=== PATIENT | male | born 1970 | race American Indian/Alaskan Native ===

== ENCOUNTER 2021-09-11 10:46 | Emergency (ER) | payer SELFPAY ==
--- NOTE | 2021-09-11 11:11 | Emergency Department Report ---
ED ENT HPI - General Chief complaint: Sore Throat Stated complaint: HARD TIME SWALLOWING Time Seen by Provider: 09/11/21 11:03 Source: patient Mode of arrival: Ambulatory Limitations: No Limitations - History of Present Illness Initial comments: This is a 51-year-old male nontoxic, well nourished in appearance, no acute signs of distress presents to the ED with c/o of sore throat x several days. Patient describes sore throat as swallowing razer blades. Patient denies any fever, chills, headache, stiff neck, nausea, vomiting, chest pain, shortness of breath, numbness or tingling. Patient denies any drooling or hoarseness. Patient denies any allergies or significant past medical history. MD complaint: sore throat -: days(s) Location: throat Severity: mild Severity scale (0 -10): 8 Quality: aching Consistency: constant Improves with: none Worsens with: swallowing Associated Symptoms: pain with swallowing, sore throat. denies: fever, cough, gum swelling, toothache, tinnitus, hearing loss, discharge from ear, rhinorrhea - Related Data Previous Rx's Medication Instructions Recorded Last Taken Type Amoxicillin [Amoxicillin TAB] 875 mg PO BID #20 tablet 09/11/21 Unknown Rx Naproxen 500 mg PO Q12H PRN #12 tablet 09/11/21 Unknown Rx Nystas/Diphen/Xyl Visc/Mylanta 15 ml MM Q6H PRN 5 Days #1 bottle 09/11/21 Unknown Rx [Magic Mouthwash] Allergies Allergy/AdvReac Type Severity Reaction Status Date / Time No Known Allergies Allergy Verified 09/11/21 10:57 ED Dental HPI - General Chief complaint: Sore Throat Stated complaint: HARD TIME SWALLOWING Time Seen by Provider: 09/11/21 11:03 Source: patient Mode of arrival: Ambulatory Limitations: No Limitations - Related Data Previous Rx's Medication Instructions Recorded Last Taken Type Amoxicillin [Amoxicillin TAB] 875 mg PO BID #20 tablet 09/11/21 Unknown Rx Naproxen 500 mg PO Q12H PRN #12 tablet 09/11/21 Unknown Rx Nystas/Diphen/Xyl Visc/Mylanta 15 ml MM Q6H PRN 5 Days #1 bottle 09/11/21 Unknow n Rx [Magic Mouthwash] Allergies Allergy/AdvReac Type Severity Reaction Status Date / Time No Known Allergies Allergy Verified 09/11/21 10:57 ED Review of Systems ROS: Stated complaint: HARD TIME SWALLOWING Other details as noted in HPI Comment: All other systems reviewed and negative Constitutional: denies: chills, fever Eyes: denies: eye pain, eye discharge, vision change ENT: throat pain. denies: ear pain, dental pain, hearing loss, epistaxis, congestion Respiratory: denies: cough, shortness of breath, wheezing Cardiovascular: denies: chest pain, palpitations Endocrine: no symptoms reported Gastrointestinal: denies: abdominal pain, nausea, diarrhea Genitourinary: denies: urgency, dysuria Musculoskeletal: denies: back pain, joint swelling, arthralgia Skin: denies: rash, lesions Neurological: denies: headache, weakness, paresthesias Psychiatric: denies: anxiety, depression Hematological/Lymphatic: denies: easy bleeding, easy bruising ED Past Medical Hx - Past Medical History Previous Medical History?: No - Surgical History Past Surgical History?: Yes Additional Surgical History: 1992 hernia repair - Medications Home Medications: Home Medications Medication Instructions Recorded Confirmed Last Taken Type Amoxicillin [Amoxicillin TAB] 875 mg PO BID #20 tablet 09/11/21 Unknown Rx Naproxen 500 mg PO Q12H PRN #12 tablet 09/11/21 Unknown Rx Nystas/Diphen/Xyl Visc/Mylanta 15 ml MM Q6H PRN 5 Days #1 bottle 09/11/21 Unknown Rx [Magic Mouthwash] ED Physical Exam - General Limitations: No Limitations General appearance: alert, in no apparent distress - Head Head exam: Present: atraumatic, normocephalic - Eye Eye exam: Present: normal appearance - Expanded ENT Exam Expanded Ear exam: Present: normal external inspection Mouth exam: Present: normal external inspection, tongue normal. Absent: drooling, trismus, muffled voice Teeth exam: Present: normal inspection Throat exam: Positive: tonsillar erythema, tonsillomegaly (2+ bilateral), other (Uvula midline. No tonsillar abscess). Negative: tonsillar exudate, R peritonsillar mass, L peritonsillar mass - Neck Neck exam: Present: normal inspection, full ROM, lymphadenopathy (Tonsillar bilateral). Absent: tenderness, meningismus - Respiratory Respiratory exam: Absent: respiratory distress - Cardiovascular Cardiovascular Exam: Present: regular rate - Extremities Exam Extremities exam: Present: full ROM - Back Exam Back exam: Present: full ROM - Neurological Exam Neurological exam: Present: alert, oriented X3, normal gait - Psychiatric Psychiatric exam: Present: normal affect, normal mood - Skin Skin exam: Present: warm, dry, intact, normal color. Absent: rash ED Course Vital Signs 09/11/21 10:57 Temperature 99.4 F Pulse Rate 91 H Respiratory 18 Rate Blood Pressure 133/85 [Right] O2 Sat by Pulse 97 Oximetry - Reevaluation(s) Reevaluation #1: 09/11/21 11:09 Patient is speaking in full sentences with no signs of distress noted. ED Medical Decision Making - Medical Decision Making This is a 51-year-old male that presents with tonsillitis. Patient is stable was examined by me. There is no drooling. No tonsillar abscess noted. Uvula is midline. Vital signs are stable. Patient is not febrile and normal heart rate. Patient was instructed to Follow-up with a primary care doctor in 3-5 days or if symptoms worsen and continue return to emergency room as soon as possible. At time of discharge, the patient does not seem toxic or ill in appearance. No acute signs of distress noted. Patient agrees to discharge treatment plan of care. No further questions noted by the patient. Critical care attestation.: If time is entered above; I have spent that time in minutes in the direct care of this critically ill patient, excluding procedure time. ED Disposition Clinical Impression: Tonsillitis Disposition: 01 HOME / SELF CARE / HOMELESS Is pt being admited?: No Does the pt Need Aspirin: No Condition: Stable Instructions: Tonsillitis, [id number] Additional Instructions: Follow-up with a primary care doctor in 3-5 days or if symptoms worsen and continue return to emergency room as soon as possible. Prescriptions: Amoxicillin [Amoxicillin TAB] 875 mg PO BID #20 tablet Nystas/Diphen/Xyl Visc/Mylanta [Magic Mouthwash] 15 ml MM Q6H PRN 5 Days #1 bottle PRN Reason: Sore Throat Naproxen 500 mg PO Q12H PRN #12 tablet PRN Reason: Pain , Severe (7-10) Referrals: GAYE HILLS MD [Referring] - 3-5 Days BRANDT CULLEN MD [Staff Physician] - 3-5 Days Forms: Work/School Release Form(ED) Time of Disposition: 11:11
[2021-09-11 12:04] VITALS: BP 121/83
== END 2021-09-11 12:05 | disposition home or self-care (01) ==
LOC: ED 10:46
DX: J03.90 Acute tonsillitis, unspecified (principal)
CPT/HCPCS: 99282

== ENCOUNTER 2022-03-01 16:28 | Emergency (ER) | payer SELFPAY ==
--- NOTE | 2022-03-01 20:21 | XRay Report ---
XR shoulder 2+V RT INDICATION / CLINICAL INFORMATION: possible dislocation. COMPARISON: None available. FINDINGS: No acute fracture. Normal alignment. Joint spaces are preserved. No destructive osseous lesion or s uspicious periosteal reaction. Impression: 1.No acute fracture. Signer Name: Larry So MD Signed: 03/01/2022 8:16 PM Workstation Name: [id number]
[2022-03-01] MEDS ORDERED: HYDROcodone/ACETAMINOPHEN 5-325 MG TAB PO ONE (23:58)
[2022-03-01] MEDS ORDERED: ONDANSETRON 4 MG ODT TAB PO ONE (23:58)
[2022-03-01] MEDS ORDERED: IBUPROFEN 600 MG TAB PO ONE (23:58)
--- NOTE | 2022-03-02 00:41 | Emergency Department Report ---
ED Upper Extremity Inj HPI - General Chief Complaint: Extremity Injury, Upper Stated Complaint: DISLOCATED ROTATOR CUFF Source: patient Mode of arrival: Ambulatory Limitations: No Limitations - History of Present Illness Initial Comments: Patient is a 51-year-old -Malag[place] male with no past medical history who presents to the ED with complaint of acute onset persistent right shoulder pain for the last 2 weeks. Patient states that he Performs heavy lifting at work and suspect that he may have lifted more heavier object and that this may stop his right shoulder. Patient states that all along he believes that he may have dislocated his right shoulder for the last 2 weeks since this injury occurred. Patient denies fall, neck pain, chest pain, shortness of breath, headache, dizziness, syncope, numbness and tingling or weakness of right. Complaint: Injury to:: right, shoulder -: Sudden, week(s) (2) Other Extremity Injury: Shoulder: Right (Pain) Other Injuries: none Handedness: right Place: work Severity scale (0 -10): 8 Improves With: rest Worsens With: movement of extremity Context: other (Heavy lifting) Associated Symptoms: denies: denies other symptoms, weakness, numbness, neck pain, suspects foreign body, nausea/vomiting, heard/felt popping sensat - Related Data Previous Rx's Medication Instructions Recorded Last Taken Type Amoxicillin [Amoxicillin TAB] 875 mg PO BID #20 tablet 09/11/21 Unknown Rx Naproxen 500 mg PO Q12H PRN #12 tablet 09/11/21 Unknown Rx Nystas/Diphen/Xyl Visc/Mylanta 15 ml MM Q6H PRN 5 Days #1 bottle 09/11/21 Unknown Rx [Magic Mouthwash] Ibuprofen [Motrin] 800 mg PO Q8HR PRN #30 tablet 03/02/22 Unknown Rx traMADoL [Ultram] 50 mg PO Q6HR PRN #12 tablet 03/02/22 Unknown Rx Allergies Allergy/AdvReac Type Severity Reaction Status Date / Time No Known Allergies Allergy Verified 03/01/22 19:23 ED Review of Systems ROS: Stated complaint: DISLOCATED ROTATOR CUFF Other details as noted in HPI Constitutional: denies: chills, fever Eyes: denies: eye pain, eye discharge, vision change ENT: denies: ear pain, throat pain Respiratory: denies: cough, shortness of breath, wheezing Cardiovascular: denies: chest pain, palpitations Endocrine: no symptoms reported Gastrointestinal: denies: abdominal pain, nausea, diarrhea Genitourinary: denies: urgency, dysuria Musculoskeletal: arthralgia (Right shoulder pain). denies: back pain, joint swelling Skin: denies: rash, lesions Neurological: denies: headache, weakness, paresthesias Psychiatric: denies: anxiety, depression Hematological/Lymphatic: denies: easy bleeding, easy bruising ED Past Medical Hx - Surgical History Additional Surgical History: 1991 hernia repair - Medications Home Medications: Home Medications Medication Instructions Recorded Confirmed Last Taken Type Amoxicillin [Amoxicillin TAB] 875 mg PO BID #20 tablet 09/11/21 Unknown Rx Naproxen 500 mg PO Q12H PRN #12 tablet 09/11/21 Unknown Rx Nystas/Diphen/Xyl Visc/Mylanta 15 ml MM Q6H PRN 5 Days #1 bottle 09/11/21 Unknown Rx [Magic Mouthwash] Ibuprofen [Motrin] 800 mg PO Q8HR PRN #30 tablet 03/02/22 Unknown Rx traMADoL [Ultram] 50 mg PO Q6HR PRN #12 tablet 03/02/22 Unknown Rx ED Physical Exam - General Limitations: No Limitations General appearance: alert, in no apparent distress - Head Head exam: Present: atraumatic, normocephalic, normal inspection - Eye Eye exam: Present: normal appearance, PERRL, EOMI Pupils: Present: normal accommodation - ENT ENT exam: Present: normal exam, normal orophraynx, mucous membranes moist, TM's normal bilaterally, normal external ear exam - Neck Neck exam: Present: normal inspection, full ROM. Absent: tenderness, lymphadenopathy - Respiratory Respiratory exam: Present: normal lung sounds bilaterally. Absent: respiratory distress, wheezes, rales, rhonchi, chest wall tenderness, accessory muscle use, decreased breath sounds, prolonged expiratory - Cardiovascular Cardiovascular Exam: Present: regular rate, normal rhythm, normal heart sounds. Absent: systolic murmur, diastolic murmur, rubs, gallop - GI/Abdominal GI/Abdominal exam: Present: soft, normal bowel sounds. Absent: tenderness, guarding, rebound, hyperactive bowel sounds, hypoactive bowel sounds, bruit - Extremities Exam Extremities exam: Present: normal inspection, full ROM, tenderness (Palpable right shoulder tenderness), normal capillary refill. Absent: pedal edema, joint swelling, calf tenderness - Back Exam Back exam: Present: normal inspection, full ROM. Absent: tenderness, CVA tenderness (R), CVA tenderness (L), muscle spasm, paraspinal tenderness, vertebral tenderness - Neurological Exam Neurological exam: Present: alert, oriented X3, CN II-XII intact, normal gait, reflexes normal - Psychiatric Psychiatric exam: Present: normal affect, normal mood - Skin Skin exam: Present: warm, dry, intact, normal color. Absent: rash ED Course Vital Signs 03/01/22 03/02/22 19:20 01:02 Temperature 97.5 F L Pulse Rate 94 H 87 Respiratory 16 12 Rate Blood Pressure 123/70 126/73 [Left] O2 Sat by Pulse 97 100 Oximetry ED Medical Decision Making - Radiology Data Radiology results: report reviewed, image reviewed [address] [address] XRay Report Signed Patient: TRISTAN MORA MR#: [id number] : 1970 Acct:[id number] Age/Sex: 51 / M ADM Date: 03/01/22 Loc: ED Attending Dr: Ordering Physician: JENY JETT MD Date of Service: 03/01/22 Procedure(s): XR shoulder 2+V RT Accession Number(s): [id number] cc: JENY JETT MD Fluoro Time In Minutes: XR shoulder 2+V RT INDICATION / CLINICAL INFORMATION: possible dislocation. COMPARISON: None available. FINDINGS: No acute fracture. Normal alignment. Joint spaces are preserved. No destructive osseous lesion or suspicious periosteal reaction. Impression: 1.No acute fracture. Signer Name: Larry So MD Signed: 03/01/2022 8:16 PM Workstation Name: [id number] Transcribed By: CS Dictated By: Larry So MD Electronically Authenticated By: Larry So MD Signed Date/Time: 03/01/222015 DD/ 15 TD/TT: - Medical Decision Making This is a 51-year-old -Malag[place] male with no past medical history who presents to the ED with complaint of acute onset persistent right shoulder pain for the last 2 weeks. Patient states that he Performs heavy lifting at work and suspect that he may have lifted more heavier object and that this may stop his right shoulder. Patient states that all along he believes that he may have dislocated his right shoulder for the last 2 weeks since this injury occurred. In the ED, patient is alert and oriented x3 and is not in any distress. Patient was treated for pain in the ED. Right shoulder x-ray showed no acute fractures or subluxation. Patient right shoulder was immobilized in an arm sling and patient was discharged home on pain medications and advised to follow-up with his primary care physician in 7 to 10 days for reevaluation or return to the ED immediately if symptoms get worse. - Differential Diagnosis Shoulder fracture; shoulder dislocation; shoulder sprain; muscle strain Critical care attestation.: If time is entered above; I have spent that time in minutes in the direct care of this critically ill patient, excluding procedure time. ED Disposition Clinical Impression: Sprain of right shoulder Qualifiers: Encounter type: initial encounter Shoulder sprain type: unspecified sprain Qualified Code(s): S43.401A - Unspecified sprain of right shoulder joint, initial encounter Muscle strain of right shoulder Qualifiers: Encounter type: initial encounter Qualified Code(s): S46.911A - Strain of unspecified muscle, fascia and tendon at shoulder and upper arm level, right arm, initial encounter Disposition: 01 HOME / SELF CARE / HOMELESS Is pt being admited?: No Does the pt Need Aspirin: No Condition: Stable Instructions: Shoulder Sprain Additional Instructions: Take medication with food, drink plenty of fluids, follow-up with your primary care physician in 7 to 10 days for reevaluation. Return to the ED immediately if symptoms get worse. Prescriptions: Ibuprofen [Motrin] 800 mg PO Q8HR PRN #30 tablet PRN Reason: Pain , Severe (7-10) traMADoL [Ultram] 50 mg PO Q6HR PRN #12 tablet PRN Reason: Pain Referrals: LILLY MCDONALD MD [Staff Physician] - 3-5 Days Time of Disposition: 00:39 Print Language: UPPER [place]BI[place]
[2022-03-02 01:09] VITALS: BP 126/73
== END 2022-03-02 01:02 | disposition home or self-care (01) ==
LOC: ED 16:28
DX: S46.911A Strain of unspecified muscle, fascia and tendon at shoulder and upper arm level, right arm, initial encounter (principal); Z79.899 Other long term (current) drug therapy; X50.0XXA Overexertion from strenuous movement or load, initial encounter; Y93.89 Activity, other specified; Y92.89 Other specified places as the place of occurrence of the external cause; Y99.8 Other external cause status
CPT/HCPCS: 99283; J3490; Q0162